=== PATIENT | female | born 1995 | race Caucasian/White ===

== ENCOUNTER 2020-09-22 14:03 | Emergency (ER) | payer OTHER, SELFPAY ==
--- NOTE | 2020-09-22 14:14 | XRR_ITS ---
PROCEDURE INFORMATION: Exam: XR Chest, 1 View Exam date and time: 09/22/2020 2:15 PM Age: 25 years old Clinical indication: Chest pain; Additional info: Pain with breathing TECHNIQUE: Imaging protocol: XR of the chest Views: 1 view. COMPARISON: No relevant prior studies available. FINDINGS: Lungs: The lungs are clear. Pleural space: Unremarkable. No pleural effusion. No pneumothorax. Heart/Mediastinum: Unremarkable. No cardiomegaly. Bones/joints: Unremarkable. XR/XR chest 1V portable [id number] IMPRESSION: Normal study.
[2020-09-22 14:30] VITALS: BP 121/70; PULSE 69; RESP 16; TEMP 36.6; O2SAT 100; BMI 27.8
[2020-09-22 14:34] VITALS: BP 97/64; PULSE 64; RESP 14; O2SAT 97
--- NOTE | 2020-09-22 14:43 | ED_ITS ---
HPI - URI/Sore Throat General: Chief Complaint: General Medical Stated Complaint: SORE THROAT, HURTS TO BREATHE Time Seen by Provider: 09/22/20 14:14 Source: patient Mode of arrival: ambulatory Limitations: no limitations History of Present Illness: HPI Narrative: Pleasant 25-year-old female patient presents to the emergency department with 1 day onset of cough congestion. She reports sore throat, nausea with headache that started past 24 hours. She reports nonproductive cough, cough induces pain in her chest, reports tightness with breathing. No known history of asthma. Has taken [id number]-wxmevks cough medications without improvement. She denies fever chills, denies ill contacts. MD elicited complaint: cough and sore throat Onset (ago): day(s) (1) Consistency: constant and progressively worsening Severity: moderate Description of mucous: other (Nonproductive cough) Able to tolerate fluids by mouth: Yes Exacerbating factors: deep breaths Relieving factors: nothing Associated symptoms: Reports cough, headache(s), nausea, rhinorrhea and sore throat; Deny abdominal pain, chills, chest pain, diarrhea, fever(s), nasal congestion or vomiting Treatments prior to arrival: other (Cough medication) Review of Systems General: Reports: 10 or more systems reviewed and unremarkable except in HPI and below Const: Reports: change in appetite and other (Denies loss of taste or smell); Denies: fever(s), chills, body aches, fatigue, malaise or diaphoresis Eyes: Denies: change in vision, blurry vision or eye redness ENMT: Reports: throat pain and nasal discharge (clear); Denies: hoarseness, oral sores, dental pain, disequilibrium, nasal congestion or post nasal drip Card: Denies: chest pain, palpitations, irregular heart rhythm, lightheadedness, dyspnea on exertion or orthopnea Resp: Reports: non-productive cough and chest congestion; Denies: dyspnea, productive cough or wheezing GI: Reports: nausea; Denies: abdominal pain, vomiting, diarrhea or constipation : Denies: difficulty voiding or dysuria Musc: Denies: neck pain, back pain, joint pain, joint swelling, muscle cramps or muscle weakness Skin/Breast: Denies: rash or pruritus Neuro: Reports: headache(s); Denies: numbness in extremities, difficulty walking, dizziness, vertigo or confusion Psych: Reports: change in appetite; Denies: anxiety, depression or sleeping more Sruya/Lymph: Denies: easy bruising [facility] ED Female Reproductive History: Date of last menstrual period: 08/19/20 Physical Exam Const: COMMON NORMALS: no acute distress, patient oriented x3, healthy renetta earing, alert and well nourished GENERAL APPEARANCE: cooperative, comfortable, well kempt, well developed and well hydrated; not anxious, not combative and not ill appearing NUTRITIONAL APPEARANCE: overweight ORIENTATION/CONSCIOUSNESS: Yes awake, Yes oriented to person, Yes oriented to place and Yes oriented to time; not confused HENMT: COMMON NORMALS: normocephalic, atraumatic, external ears normal, EAC's normal, TM's normal bilaterally, Normal external nose present, moist oral mucous membranes and gingiva normal HEAD & SCALP: normal to inspection, normocephalic and atraumatic FACE & SINUS: normal facial exam, sinuses nontender and face symmetric; no erythema and no edema NOSE: Normal external nose present, Abnormal mucous membranes and turbinates present boggy and Nasal discharge present clear EXTERNAL EAR: Yes external ears normal, Yes mastoids normal and Yes no periauricular adenopathy EXTERNAL AUDITORY CANAL: EAC's normal TYMPANIC MEMBRANE: TM's normal bilaterally MOUTH: Normal oral and palatal mucosa present, lip normal and tongue normal THROAT: posterior oropharynx abnormal cobblestoning and erythema Eye: COMMON NORMALS: Equal, round and reactive pupils present and EOMs intact bilaterally GENERAL EYE: appearance normal, both eyes and all related structures PUPIL: Yes Equal, round and reactive pupils present Neck/C-Spine: COMMON NORMALS: full ROM and no lymphadenopathy GENERAL: Yes normal visual inspection and Yes trachea midline CERVICAL SPINE: Yes cervical ROM normal Lymph: LYMPHATIC: lymphadenopathy (Right subtonsillar with tenderness) Chest: COMMONS NORMALS: normal inspection of the chest Resp: COMMON NORMALS: normal respiratory effort, No retractions, No use of accessory muscles and clear to auscultation bilaterally EFFORT & INSPECTION: Yes able to speak in complete sentences, No respiratory distress and Yes Actively coughing AUSCULTATION: clear to auscultation bilaterally Cardio: COMMON NORMALS: regular rate, regular rhythm, S1 normal heart sound present, S2 normal heart sound present and Peripheral pulses 2+ throughout RATE: regular rate RHYTHM: regular rhythm HEART SOUNDS: S1 normal heart sound present and S2 normal heart sound present PERIPHERAL PULSES: Peripheral pulses 2+ throughout GI: COMMON NORMALS: Normal to inspection, nondistended, normoactive bowel sounds present, Soft to palpation and non-tender INSPECTION: Yes normal to inspection PALPATION: Yes Soft to palpation : COMMON NORMALS: Yes no CVA tenderness BLADDER/KIDNEY EXAM: Yes no CVA tenderness Back/Pelvis: COMMON NORMALS: no CVA tenderness and thoracic and lumbar spine normal to inspection Extremity: COMMON NORMALS: normal to inspection and capillary refill normal Neuro: COMMON NORMALS: patient oriented x3 and no focal motor deficits SENSORIUM/ORIENTATION: Yes alert, Yes oriented to person, Yes oriented to place and Yes oriented to time Psych: COMMON NORMALS: mental status grossly normal, Normal thought process present and cooperative APPEARANCE: Yes well kempt ACTIVITY/MOTOR BEHAVIOR: Yes appropriate eye contact THOUGHT PROCESS: Normal thought process present Skin: COMMON NORMALS: no rashes or lesions noted and turgor normal GENERAL SKIN EXAM: no rashes or lesions noted and turgor normal Course Vital Signs: Vital signs: Vital Signs Temperature 97.8 F 09/22/20 14:30 Pulse Rate 58 L 09/22/20 16:14 Respiratory Rate 18 09/22/20 16:14 Blood Pressure 95/67 09/22/20 16:14 Pulse Oximetry 100 09/22/20 16:14 MDM - URI/Sore Throat Lab Data: Labs: Lab Results 09/22/20 09/22/20 Range/Units 14:45 14:45 Influenza Type A A g Negative (Negative) Influenza Type B A g Negative (Negative) Group A Strep Rapi d Negative (Negative) Discharge Plan Discharge Patient Disposition: Home Clinical Impression: Suspected 2019 novel coronavirus infection Upper respiratory infection Qualifiers: URI type: unspecified viral URI Qualified Code(s): J06.9 - Acute upper respiratory infection, unspecified Condition: Stable Prescriptions: New azithromycin 250 mg tablet See Rx Instructions .ROUTE .COMPLEX Qty: 6 RF: 0 methylprednisolone 4 mg tablets,dose pack See Rx Instructions .ROUTE .COMPLEX Qty: 21 RF: 0 promethazine 25 mg tablet 25 mg PO QID PRN (Reason: nausea/cough) Qty: 10 RF: 0 benzonatate 200 mg capsule 200 mg PO TID PRN (Reason: cough) Qty: 20 RF: 0 Discharge Orders: Discharge ED (Routine); Ordered 09/22/20 Ordered By: Rosy Lomeli Discharge Diet: Advance as tolerated and Clear Liquid Discharge Activity: Limit activity as instructed Patient Instructions: Upper Respiratory Infection (ED) Activity Restrictions/Additional Instructions: Return to the emergency department if you develop difficulty breathing, chest pain or inability to catch your breath Take promethazine as needed for nausea and/or cough, you have also been prescribed benzonatate for cough Push fluids to stay hydrated, may take ibuprofen as needed for pain along with Tylenol as directed on bottle Use albuterol as directed by respiratory therapy with spacer, use 2 puffs every 4 hours as needed for cough/chest tightness. Remain in quarantine until COVID-19 test results are called to you; if positive, [facility] will contact you with further instructions. Stand Alone Forms: Work/School Release Coding Level of Care Code ED Piercer for Jeri Fwd Exam Comprehensive
[2020-09-22] MEDS: promethazine 25 mg Tablet PO (15:16)
[2020-09-22] MEDS: albuterol 8 gm MDI 2 PUFF INHALATION (15:31)
[2020-09-22 15:37] VITALS: PULSE 84; RESP 18; O2SAT 99
[2020-09-22 15:39] VITALS: PULSE 90
[2020-09-22 15:46] LABS: Rapid Strep A Test Negative (Negative)
[2020-09-22 15:55] LABS: Influenza A by IFA Negative (Negative); Influenza B by IFA Negative (Negative)
[2020-09-22 16:14] VITALS: BP 95/67; PULSE 58; RESP 18; O2SAT 100
[2020-09-24 06:10] LABS: Coronavirus Test Green County Not Detected
== END 2020-09-22 16:17 | disposition home or self-care (01) ==
PROVIDERS: Emergency Provider Nurse Practitioner Family
DX: J06.9 Acute upper respiratory infection, unspecified (principal); Z20.828 Contact with and (suspected) exposure to other viral communicable diseases
CPT/HCPCS: 12345; 71045; 87081; 87635; 87804; 87880; 94640; 99281; 99283; J3535; Q0169

== ENCOUNTER → 2020-10-15 08:53 | Outpatient (BNVA) | payer MEDICAID, SELFPAY | PROVIDERS: Visit Provider Nurse Practitioner Women's Health | DX: O20.0 Threatened abortion (principal); O09.899 Supervision of other high risk pregnancies, unspecified trimester; O34.219 Maternal care for unspecified type scar from previous cesarean delivery; O99.331 Smoking (tobacco) complicating pregnancy, first trimester; O20.9 Hemorrhage in early pregnancy, unspecified | CPT/HCPCS: 84315; 84702; 85027; 86850; 86900 ==

== ENCOUNTER → 2020-11-19 08:14 | Outpatient (BNVA) | payer MEDICAID, SELFPAY | PROVIDERS: Visit Provider Obstetrics & Gynecology | DX: O09.899 Supervision of other high risk pregnancies, unspecified trimester (principal); O99.340 Other mental disorders complicating pregnancy, unspecified trimester; O21.9 Vomiting of pregnancy, unspecified; F32.9 Major depressive disorder, single episode, unspecified; O99.210 Obesity complicating pregnancy, unspecified trimester; Z3A.00 Weeks of gestation of pregnancy not specified | CPT/HCPCS: 80307; 84315; 84443; 86592; 86762; 86803; 87086; 87340; 87806 ==

== ENCOUNTER → 2020-12-03 12:07 | Outpatient (BNVA) | payer MEDICAID, SELFPAY | PROVIDERS: Visit Provider Obstetrics & Gynecology | DX: Z12.4 Encounter for screening for malignant neoplasm of cervix (principal); O09.899 Supervision of other high risk pregnancies, unspecified trimester; O09.299 Supervision of pregnancy with other poor reproductive or obstetric history, unspecified trimester; F32.9 Major depressive disorder, single episode, unspecified; Z30.2 Encounter for sterilization; O34.219 Maternal care for unspecified type scar from previous cesarean delivery; O99.331 Smoking (tobacco) complicating pregnancy, first trimester | CPT/HCPCS: 81000; 82950; 87491; 87591; 88175 ==

== ENCOUNTER → 2021-01-15 10:53 | Outpatient (BNVA) | payer MEDICAID, SELFPAY | PROVIDERS: Visit Provider Nurse Practitioner Women's Health | DX: O09.30 Supervision of pregnancy with insufficient antenatal care, unspecified trimester (principal); F33.1 Major depressive disorder, recurrent, moderate; Z30.2 Encounter for sterilization; O09.299 Supervision of pregnancy with other poor reproductive or obstetric history, unspecified trimester; O34.219 Maternal care for unspecified type scar from previous cesarean delivery; O09.899 Supervision of other high risk pregnancies, unspecified trimester; O99.332 Smoking (tobacco) complicating pregnancy, second trimester; Z3A.00 Weeks of gestation of pregnancy not specified | CPT/HCPCS: 80307; 81000 ==

== ENCOUNTER → 2021-01-28 09:19 | Outpatient (BNVA) | payer MEDICAID, SELFPAY | PROVIDERS: Visit Provider Obstetrics & Gynecology | DX: O09.899 Supervision of other high risk pregnancies, unspecified trimester (principal) | CPT/HCPCS: 81000 ==

== ENCOUNTER → 2021-04-02 07:58 | Outpatient (BNVA) | payer MEDICAID, SELFPAY | PROVIDERS: Visit Provider Obstetrics & Gynecology | DX: O09.899 Supervision of other high risk pregnancies, unspecified trimester (principal); Z3A.00 Weeks of gestation of pregnancy not specified | CPT/HCPCS: 80307; 81000; 82950; 85027 ==

== ENCOUNTER 2021-04-18 16:35 | Outpatient (CLI) | payer MEDICAID, SELFPAY ==
[2021-04-18 16:35] VITALS: BMI 31.2
[2021-04-18 16:50] VITALS: BP 101/66; PULSE 79; TEMP 36.6
[2021-04-18 16:58] VITALS: RESP 17
== END 2021-04-18 17:20 | disposition home or self-care (01) ==
LOC: OPOB 16:37 → OBGYN 16:39
PROVIDERS: Visit Provider Obstetrics & Gynecology
DX: O26.899 Other specified pregnancy related conditions, unspecified trimester (principal); Z3A.00 Weeks of gestation of pregnancy not specified; R10.9 Unspecified abdominal pain
CPT/HCPCS: 59025; 81000; 99211

== ENCOUNTER → 2021-05-02 10:11 | Outpatient (BNVA) | payer MEDICAID, SELFPAY | PROVIDERS: Visit Provider Obstetrics & Gynecology | DX: O09.899 Supervision of other high risk pregnancies, unspecified trimester (principal); O99.332 Smoking (tobacco) complicating pregnancy, second trimester; O34.219 Maternal care for unspecified type scar from previous cesarean delivery; O09.299 Supervision of pregnancy with other poor reproductive or obstetric history, unspecified trimester; F33.1 Major depressive disorder, recurrent, moderate; O09.30 Supervision of pregnancy with insufficient antenatal care, unspecified trimester; Z3A.00 Weeks of gestation of pregnancy not specified | CPT/HCPCS: 81000; 85025 ==

== ENCOUNTER → 2021-05-13 08:08 | Outpatient (BNVA) | payer MEDICAID, SELFPAY | PROVIDERS: Visit Provider Obstetrics & Gynecology | DX: O09.899 Supervision of other high risk pregnancies, unspecified trimester (principal); O09.30 Supervision of pregnancy with insufficient antenatal care, unspecified trimester; F33.1 Major depressive disorder, recurrent, moderate; Z30.2 Encounter for sterilization; O34.219 Maternal care for unspecified type scar from previous cesarean delivery; O99.332 Smoking (tobacco) complicating pregnancy, second trimester | CPT/HCPCS: 81000; 87081 ==

== ENCOUNTER → 2021-05-21 09:26 | Outpatient (BNVA) | payer MEDICAID, SELFPAY | PROVIDERS: Visit Provider Nurse Practitioner Women's Health | DX: O09.899 Supervision of other high risk pregnancies, unspecified trimester (principal); O09.30 Supervision of pregnancy with insufficient antenatal care, unspecified trimester; F33.1 Major depressive disorder, recurrent, moderate; Z30.2 Encounter for sterilization; O34.219 Maternal care for unspecified type scar from previous cesarean delivery; O99.332 Smoking (tobacco) complicating pregnancy, second trimester | CPT/HCPCS: 81000 ==

== ENCOUNTER → 2021-05-27 09:13 | Outpatient (BNVA) | payer MEDICAID, SELFPAY | PROVIDERS: Visit Provider Obstetrics & Gynecology | DX: O09.899 Supervision of other high risk pregnancies, unspecified trimester (principal) | CPT/HCPCS: 81000 ==

== ENCOUNTER → 2021-05-30 08:31 | Outpatient (BNVA) | payer MEDICAID, SELFPAY | PROVIDERS: Visit Provider Obstetrics & Gynecology | DX: O34.219 Maternal care for unspecified type scar from previous cesarean delivery (principal); Z30.2 Encounter for sterilization | CPT/HCPCS: 87635 ==

== ENCOUNTER → 2021-06-04 07:45 | Outpatient (BNVA) | payer MEDICAID, SELFPAY | PROVIDERS: Visit Provider Obstetrics & Gynecology | DX: O09.899 Supervision of other high risk pregnancies, unspecified trimester (principal); O99.013 Anemia complicating pregnancy, third trimester; F33.1 Major depressive disorder, recurrent, moderate; Z30.2 Encounter for sterilization; O34.219 Maternal care for unspecified type scar from previous cesarean delivery; O99.332 Smoking (tobacco) complicating pregnancy, second trimester | CPT/HCPCS: 81000 ==

== ENCOUNTER 2021-06-05 05:35 | Inpatient (IN) | payer MEDICAID, SELFPAY ==
--- NOTE | 2021-05-30 10:39 | ANES.PREANE2 ---
Pre-Anesthetic Assessment Pre-Anesthetic Assessment: Height/Weight: Height 1.6 m Preop Diagnosis: Iup Proposed Procedure: Operation Date: 06/05/21 07:00 Proposed Procedures p Section Repeat With Tubal [id number] O34.219 Z30.2(Not Applicable) - Catherine Flores MD Familial anesthetic complications: PONV when her blood pressure drops Was Beta Adrian taken within 24 hours: N/A Social: Social History: No alcohol and No tobacco Exam: Pre-Anes Outpt Exam: alert, oriented x 3, clear to auscultation bilaterally and regular rate & rhythm Airway: Cervical ROM: WNL MP: 3 Dentition: Chipped GI: GI: GERD Anesthetic Plan: ASA status: 2 Anesthesia: Regional (specify below) Risk of > 500 ml blood loss (7ml/kg in children): No PFSH Anesthesia PFSH: Medical History Depression States that she has had depression on and off since she was a teenager. Was on Zoloft and Seroquel prior to the . No pertinent past medical history Denies diabetes, asthma, hypertension, seizures, DVT/PE PMD: none Surgical History Hx of section X 3 2012 2016 2019 Hx of cholecystectomy (~2018) Laparoscopic procedure Family History Mother Breast cancer dx age 40's and received chemoradiation and surgery Thyroid disease Sister Ovarian cancer Diagnosed at the age of 25 and per patient took chemotherapy pills Denies family history of Colon cancer Diabetes Heart disease Hypercholesteremia Hypertension Uterine cancer Stroke Female Reproductive History: Date of last menstrual period: 08/19/20 Data Anesthesia Cardiac Studies: No Data to Display
[2021-06-05] VITALS (27 sets, daily range): BP systolic 82–136; BP diastolic 50–78; PULSE 48–94; RESP 16–18; TEMP 35.8–37; O2SAT 99–100; BMI 32.0
[2021-06-05] MEDS: lactated ringers 1,000 ML 999 ML IV (06:05)
[2021-06-05] MEDS: metoclopramide 5 mg/mL SDV 2 mL 10 MG IVP (06:30)
[2021-06-05] MEDS: citric acid-sodium citrate 30 mL UDC PO (06:30)
[2021-06-05] MEDS: famotidine 20 mg/2 mL INJ IVP (06:30)
[2021-06-05] MEDS: lactated ringers 1,000 ML 125 ML IV (06:33)
--- NOTE | 2021-06-05 06:41 | W.PM.OPSUD ---
Surgery/Procedure H&P Update DATE OF PROCEDURE: June 05, 2021 DATE H&P PERFORMED: 06/04/21 H&P UPDATE INFORMATION: I have reviewed H&P completed within last 30 days, I have examined patient prior to procedure, No changes to prior documentation and H&P is in [facility] on date indicated PREOP DIAGNOSIS: Iup PRIMARY INDICATION FOR PROCEDURE: Previous delivery-desires sterilization PLANNED PROCEDURE: Operation Date: 06/05/21 07:00 Proposed Procedures p Section Repeat With Tubal [id number] O34.219 Z30.2(Not Applicable) - Catherine Flores MD
[2021-06-05 06:51] LABS: Basophils % 0.4 %; Eosinophils # 0.2 10^3/uL (0.0-0.8); Eosinophils % 1.7 %; Hematocrit 30.7 % (37.0-47.0); Hemoglobin 9.5 g/dL (11.5-15.3); Lymphocytes # 2.7 10^3/uL (0.8-4.8); Lymphocytes % 24.2 %; Mean Corpuscular HGB Conc 30.9 g/dL (30.0-36.0); Mean Corpuscular Hemoglobin 25.3 pg (28.0-34.0); Mean Corpuscular Volume 81.9 fl (81-99); Mean Platelet Volume 9.8 fL (7.4-10.4); Monocytes # 0.8 10^3/uL (0.2-0.9); Monocytes % 6.9 %; Neutrophils # 7.23 10^3/uL (1.8-7.7); Neutrophils % 66.1 %; Nucleated Red Blood Cells % 0 %; Platelet Count 285 10^3/cmm (130-400); Red Blood Count 3.75 10^6/uL (4.1-5.3); Red Cell Distribution Width 14.4 % (12.1-15.1)
--- NOTE | 2021-06-05 06:56 | ANES.PAUD2 ---
Pre-Anesthetic Update Pre-Anesthetic Assessment: Date of Surgery/Procedure: 06/05/21 Preop Diagnosis: Iup Proposed Procedure: Operation Date: 06/05/21 07:00 Proposed Procedures p Section Repeat With Tubal [id number] O34.219 Z30.2(Not Applicable) - Catherine Flores MD Any changes to Pre-Anesthetic Assessment?: No Last Intake: Intake Last Liquid Date 06/04/21 Last Liquid Time 23:00 Last Solid Date 06/04/21 Last Solid Time 20:00 Labs Last 48hrs: Laboratory Results - last 48 hr 06/05/21 05:50 WBC 11.0 H RBC 3.75 L Hgb 9.5 L Hct 30.7 L MCV 81.9 MCH 25.3 L MCHC 30.9 RDW 14.4 Plt Count 285 MPV 9.8 Neut % (Auto) 66.1 Lymph % (Auto) 24.2 Mckenzie % (Auto) 6.9 Eos % (Auto) 1.7 Baso % (Auto) 0.4 Neut # (Auto) 7.23 Lymph # (Auto) 2.7 Mckenzie # (Auto) 0.8 Eos # (Auto) 0.2 Baso # (Auto) 0.0 Nucleated RBC % (a uto) 0 Nucleated RBCs # 0.0 Vitals: Temperature 96.4 F L 06/05/21 05:54 Pulse Rate 79 06/05/21 06:26 Pulse Rhythm 06/05/21 05:58 Pulse Strength 3+ Normal 06/05/21 05:58 Respiratory Rate 16 06/05/21 05:43 Respiratory Effort Non-Labored 06/05/21 05:58 Respiratory Depth Normal 06/05/21 05:58 Respiratory Patter n 06/05/21 05:58 Blood Pressure 104/63 06/05/21 06:26 Oxygen Delivery Me thod 06/05/21 05:58 Exam: Pre-Anes Outpt Exam: alert, oriented x 3, clear to auscultation bilaterally and regular rate & rhythm Cardiac Studies: No Data to Display
--- NOTE | 2021-06-05 07:05 | PC.NURSE ---
in dictation area, updated that Dr. Stewart stated that she is not going to come to unit for delivery, only if there is an emergency.
--- NOTE | 2021-06-05 08:54 | P.PCN_ITS ---
PACU note PACU note: VSS, Good respiratory effort, report to [place] OPERATOR Post-Anesthesia Exam: awake
--- NOTE | 2021-06-05 08:54 | PM.PACU ---
PACU note PACU note: VSS, Good respiratory effort, report to DEL[employer] Post-Anesthesia Exam: awake
--- NOTE | 2021-06-05 09:01 | P.OP_ITS ---
Operative Report Date of procedure: June 05, 2021 OPERATIVE REPORT Date of surgery: 06/05/2021 Date of dictation: 06/05/2021 Preoperative diagnosis: Previous delivery x3 for repeat , multiparity desiring permanent sterilization, anemia on iron Postoperative diagnosis/findings: Same, normal tubes and ovaries bilaterally, dense bladder adhesions onto the uterus and filmy omental adhesions onto the anterior abdominal wall on the left side. Baby henrry Craven weighing 7 pounds 5 ounces, 3315 g with Apgars 9/9, length 19 inches, clear fluid Procedure done: Repeat low transverse delivery via Pfannenstiel incision and bilateral total salpingectomy for sterilization. Specimens removed/disposition of specimens: Placenta and cord which were discarded, right and left fallopian tubes which were sent to pathology Surgeon: Dr. Catherine Parker clinical laboratory assistant: Mercy Galvan Anesthesia: Spinal anesthesia Estimated blood loss: 700 ml Intravenous fluids: 1300 mL of LR Urine output: 150 mL of clear urine at the end of procedure-concentrated Medications: As per anesthesia records Complications: None, patient and baby were left to recover in a stable condition PROCEDURE: After consent was obtained, patient was taken to the operating room where spinal anesthesia was placed without difficulty. She was placed supine on the table with a left lateral wedge. Mackay catheter and SCDs were placed. The abdomen was shaved and then prepped with duo prep. She was draped in a sterile fashion. After checking adequacy of anesthesia, a Pfannenstiel incision was made 2-3 cm above the pubic symphysis using her old scar. The incision was carried down to the fascia using the Bovie. The fascia was nicked in the midline and the fascial incision was extended laterally using curved Mayos. The inferior aspect of the fascia was grasped with oz clamps and dissected off from the underlying rectus muscle. This was repeated again superiorly without any difficulty. The rectus muscle was sharply and peritoneum was identified. A rhea was made in the peritoneum and the peritoneal incision was carried inferiorly taking care to proceed in layers so as to avoid the bladder. The peritoneal incision was extended superiorly as well. No adhesions were noted from the uterus to the anterior abdominal wall. Filmy omental adhesions were noted on the left side to the anterior abdominal wall and this was taken down without any difficulty. The uterus was noted to be rotated to the left. The bladder was noted to be densely adherent to the uterus and using sharp dissection the bladder was taken down. The bladder peritoneum was grasped with smooth forceps a bladder flap was created. the bladder blade was replaced thus protecting the bladder. A LOW TRANSVERSE UTERINE INCISION was made with a scalpel till the amniotic membrane was reached. The uterine incision was then extended laterally using bandage scissors. Amniotomy was done with Allis clamps and clear amniotic fluid was drained. The head of the baby was brought up to the level of the incision and delivered with fundal pressure. The remainder of body followed without any difficulty. The nose and mouth were suctioned, the umbilical cord was clamped and cut and the baby was handed off to the waiting nurse Jeane.. The placenta was delivered spontaneously with fundal massage. It was noted to be intact and was discarded. The interior of the uterus was cleaned of all clot and debris and was noted to be buddy well. The uterus was exteriorized. The uterine incision was closed with 0 Vicryl in a running interlocking manner. Good hemostasis and reapproximation was obtained. [id number] sutures were p laced over areas for imbrication and hemostasis. The abdomen was irrigated and the gutters were cleaned of clot and debris. Normal tubes and ovaries were noted bilaterally. Tubal ligation was performed at this time. The fallopian tube on the right side and in the left side were first identified grasped with Félix clamps. Using the Voyant device the mesosalpinx under the fallopian tube was identified clamped cauterized and then cut in a sequential fashion until the entire fallopian tube was removed. This was done first on the right side and then the left side without any difficulty. Areas of vasculature were doubly cauterized. The cornual end was cauterized as well. Good hemostasis and reapproximation of tissue was noted. Bilateral fallopian tubes were sent to pathology in total. The uterus was placed back into the abdomen and uterine incision was noted to be hemostatic. The peritoneum was closed with a 2-0 plain in a continuous stitch. The rectus muscle was reapproximated with 2-0 plain suture in a mattress stitch. Good hemostasis was noted in the rectus muscle layer. The fascia was inspected for any defects and none were found and the fascia was closed with 0- loop PDS in continuous stitch. The subcutaneous plane was then irrigated and hemostasis was obtained using the Bovie. The subcutaneous plane was then reapproximated using 2-0 plain suture in a continuous manner. The skin was then closed with 4-0 Monocryl in a subcuticular fashion. Good reapproximation and hemostasis was noted. Steri-Strips were applied. The incision was dressed with Telfa ,ABD and paper tape. The fundus was noted to be firm at the end of the procedure and excess blood was expressed from the vagina. The patient was left to recover in a stable condition. Lap instrument and needle counts were correct x3. This documentation was created by [employer] blasting entry specialist software (known for inherent blasting entry specialist error). Every effort was made to assure accuracy of blasting entry specialist. Any obvious errors or omissions should be clarified with the author of the document. Pre-op Diagnosis: Iup History History History 8 Term 4 Miscarriages/Ectopic 4 0 Living Children 4 Other History: CDX 4 SABX 4 1--> miscarriage at 6-8 weeks 2--> 03/31/13- girl (Jaylin), FT, section due to breech presentation, 10#7oz, [place] 3--> miscarriage at unknown gestation 4--> miscarriage at 4-5 weeks 5--> 06/28/2017- girl(Diana), FT, repeat section, 8# 6oz, [place] 6--> 08/10/2019, boy (Johnny), FT, repeat section, 6lbs 12oz, [place] 7--> 03/2020 SAB at early gestation 8----> 06/05/2021, boy(Herber) weighing 7 pounds 5 ounces, 3315 g scheduled repeat low transverse delivery with total salpingectomy for sterilization at 39 [address] [place] [facility] Dense bladder adhesions noted at time of surgery. [facility] [employer] REPA[employer]ER Medical History Depression States that she has had depression on and off since she was a teenager. Was on Zoloft and Seroquel prior to the . No pertinent past medical history Denies diabetes, asthma, hypertension, seizures, DVT/PE PMD: none Surgical History (Updated 06/05/21 @ 09:13 by Catherine Flores MD) Hx of section X 4 2012 2017 2019 06/05/2021---repeat low transverse delivery and tubal ligation performed by Dr. Parker [place] [facility]. Dense bladder adhesions of the uterus otherwise no significant additions. Hx of cholecystectomy (~2018) Laparoscopic procedure Status post tubal ligation 06/05/2021---total bilateral salpingectomy for sterilization done at time of fourth by Dr. Parker [place] [facility] Pathology------- Family History Mother Breast cancer dx age 40's and received chemoradiation and surgery Thyroid disease Sister Ovarian cancer Diagnosed at the age of 25 and per patient took chemotherapy pills Denies family history of Colon cancer Diabetes Heart disease Hypercholesteremia Hypertension Uterine cancer Stroke Supplemental [facility] Information - Tobacco use: Started smoking at age 8 and and smoked up to 1 pack per day until she found out she was . Quit smoking 10/28/2020 and denies tobacoo use since then. Started smoking again early December using 1 -1 ppd. Has been trying to cut back and stopped smoking in March 2021. Denies tobacco use since then. Alcohol use: denies Drug use: denies Work: Was working at [employer] in [place] making [employer] [place] until March 2021. Currently staying at home with her children. Other Female Reproductive History Menstrual History Comment: Menarche at age 12 with a cycle length of 28-30 days and a bleeding duration of 3-7 days. Sexual History Sexual History Comment: Coitarche at age 14, more than 5 lifetime partners, has been with current partner since 2019. His name is Richard Desir and he works at [employer]. STD History Comment: Denies sexually transmitted diseases in the past. Denies herpes in her or her partner Contraception Contraception History Comment: Is use control pills and the Nexplanon in the past for contraception. She was not a very good pill taker and felt that the Nexplanon made her depression very bad and made her feel suicidal. --Total salpingectomy done for sterilization on 06/05/2021 at time of her fourth .
--- NOTE | 2021-06-05 10:42 | PC.NURSE ---
note Assisted pt in OR with position and latch. Mom did not have enough milk with prior baby. Encouraged frequent feedings. This baby nursing very well. Provided Understanding book and contact information.
[2021-06-05] MEDS: HYDROcodone-acetaminophen 5-325 mg Tablet PO ×3 (10:58→22:27)
[2021-06-05] MEDS: ondansetron 2 mg/ML SDV 2 mL 4 MG IVP (11:41)
[2021-06-05] MEDS: diphenhydrAMINE 50 mg/mL SDV 1mL 25 MG IVP ×2 (15:08→20:11)
[2021-06-05] MEDS: dextrose 5%-lactated ringers 1,000 ML 125 ML IV (15:08)
[2021-06-05] MEDS: ferrous sulfate EC 325 mg Tablet PO (18:38)
[2021-06-05] MEDS: docusate sodium 100 mg Capsule PO (18:38)
[2021-06-05] MEDS: hydrocortisone 2.5% cream 28 gm 1 APPLIC TOPICAL (19:51)
[2021-06-05 20:51] LABS: Hematocrit 30.9 % (37.0-47.0); Hemoglobin 9.6 g/dL (11.5-15.3); Mean Corpuscular HGB Conc 31.1 g/dL (30.0-36.0); Mean Corpuscular Hemoglobin 25.6 pg (28.0-34.0); Mean Corpuscular Volume 82.4 fl (81-99); Mean Platelet Volume 9.8 fL (7.4-10.4); Platelet Count 239 10^3/cmm (130-400); Red Blood Count 3.75 10^6/uL (4.1-5.3); Red Cell Distribution Width 14.5 % (12.1-15.1); White Blood Count 12.5 10^3/uL (4.0-10.0)
[2021-06-05] MEDS: ibuprofen 800 mg tablet PO (21:10)
[2021-06-06] MEDS: HYDROcodone-acetaminophen 5-325 mg Tablet PO ×4 (02:31→18:34)
[2021-06-06 04:00] VITALS: BP 100/63; PULSE 63; RESP 18; TEMP 36.4; O2SAT 100
[2021-06-06] MEDS: prenatal vitamin Capsule 1 CAP PO (08:40)
[2021-06-06] MEDS: ibuprofen 800 mg tablet PO ×2 (08:40→22:26)
[2021-06-06] MEDS: docusate sodium 100 mg Capsule PO ×2 (08:40→18:34)
[2021-06-06] MEDS: ferrous sulfate EC 325 mg Tablet PO ×2 (08:40→18:34)
--- NOTE | 2021-06-06 10:34 | PM.PN ---
Subjective Subjective: Interval history: SUBJECTIVE: Lulu is doing well today. She has passed flatus and has tolerated a regular diet. She denies any nausea vomiting fever chills shortness of breath or chest pain. She is up and ambulating well. She does report having pain however pain medication helps. She continues to desire her son to have a circumcision. She would like to stay until tomorrow. Catheter was removed this morning and she is voided without any difficulty. She denies any dizziness on ambulation. OBJECTIVE/PHYSICAL EXAM: Gen.: No acute distress Heart: S1-S2 heard, regular rate and rhythm Lungs: Clear to auscultation bilaterally Abdomen: Soft, fundus firm below umbilicus, tenderness around incision. Incision: Clean dry and intact with Steri-Strips. Legs: No calf tenderness, trace bilateral pitting pedal edema. ASSESSMENT AND PLAN: 26-year-old 8 para 4-0-4-4 status post repeat delivery and total salpingectomy for sterilization, postoperative day #1 -Doing well-continue routine postoperative care -P.o. medication as needed for pain. -Anemia-hemoglobin stable and vital signs stable.-Continue current care -SCDs while in bed and encourage ambulation for DVT prophylaxis -Anticipate discharge home tomorrow or the day after depending on how she recovers from her . -Discontinue IV Vitals/I&O/Wt Last Vital Signs Temp 97.5 F L 06/06/21 04:00 Pulse 63 06/06/21 04:00 Resp 18 06/06/21 04:00 BP 100/63 06/06/21 04:00 Pulse Ox 100 06/06/21 04:00 06/05/21 06/06/21 06/06/21 22:59 06:59 14:59 Intake Total 600 / 1900 2250 / 4150 Output Total 2800 / 3650 2600 / 6250 Balance -2200 / -1750 -350 / -2100 Weight last 48 hrs Weight 175 lb Physical Exam Urinary Catheter Management^: Mackay: Cath Placed During This Visit: yes, but has since been removed by the nurse Reason for Continuing Indwelling Catheter: Decision to DC Catheter Urinary Catheter Date of Insertion: 06/05/21 Urinary Catheter Time of Insertion: 07:15 Date Urinary Catheter Removed: 06/06/21 Time Urinary Catheter Discontinued: 06:35 Data : 06/05/21 20:10 Attestations Medical Necessity Statement*: Patient will need to stay for a couple more midnights to recover from surgery Coding Level of Care Code Acute Impregnation Operator for Jeri Tejeda
[2021-06-06] MEDS: lanolin oint 7 gm 1 APPLIC TOPICAL (13:04)
[2021-06-06 13:55] VITALS: BP 103/65; PULSE 65; RESP 17; TEMP 36.4; O2SAT 100
[2021-06-06 23:00] VITALS: BP 110/72; PULSE 80; RESP 18; TEMP 36.4
[2021-06-07 02:15] VITALS: BP 93/60; PULSE 64; RESP 16; TEMP 36.9; O2SAT 99
[2021-06-07 05:16] VITALS: BP 94/59; PULSE 68; RESP 16; TEMP 36.8; O2SAT 99
[2021-06-07] MEDS: HYDROcodone-acetaminophen 5-325 mg Tablet PO (05:17)
--- NOTE | 2021-06-07 06:32 | P.DS_ITS ---
Discharge Providers Date of Admission: 06/05/21 05:35 Date of Discharge: June 07, 2021 Attending Provider at Admission: Catherine Flores MD Attending Provider at Discharge: Catherine Flores MD Diagnoses at Discharge Discharge Diagnosis (1) Postoperative state: Status: Acute Reason for Visit Reason for Visit: repeat c section with tubal Hospital Course Hospital Course the patient was admitted for repeat with tubal. She did well postoperatively and was ready for discharge on day #2 Physical Exam Narrative: EXAM NARRATIVE: The patient is doing well this morning. She has no concerns. Her pain is well tolerated. Minimal lochia. Tolerating a regular diet and ambulating without difficulty Const: COMMON NORMALS: no acute distress, average body habitus, patient oriented x3, no limitations, healthy appearing, alert and well nourished GENERAL APPEARANCE: cooperative, comfortable, well kempt and well developed ORIENTATION/CONSCIOUSNESS: Yes awake, Yes oriented to person, Yes oriented to place and Yes oriented to time Resp: COMMON NORMALS: normal respiratory effort EFFORT & INSPECTION: Yes able to speak in complete sentences GI: COMMON NORMALS: Soft to palpation and non-tender PALPATION: Yes Soft to palpation Extremity: COMMON NORMALS: no clubbing, cyanosis or edema and no calf tender ness Neuro: COMMON NORMALS: patient oriented x3 SENSORIUM/ORIENTATION: Yes alert, Yes oriented to person, Yes oriented to place and Yes oriented to time Psych: APPEARANCE: Yes well kempt Urinary Catheter Management^: Mackay: Cath Placed During This Visit: yes, but has since been removed by the nurse Reason for Continuing Indwelling Catheter: Decision to DC Catheter Urinary Catheter Date of Insertion: 06/05/21 Urinary Catheter Time of Insertion: 07:15 Date Urinary Catheter Removed: 06/06/21 Time Urinary Catheter Discontinued: 06:35 Discharge Data Data Completed and Pending: Pending at discharge Category Date Time Status Pathology: Surgic al [PTH] Routine Pth 06/05/21 10:01 Received Vitals: Last Vital Signs Temp 98.3 F 06/07/21 05:16 Pulse 68 06/07/21 05:16 Resp 16 06/07/21 05:16 BP 94/59 06/07/21 05:16 Pulse Ox 99 06/07/21 05:16 Discharge Plan Discharge Patient Disposition: Home Condition: Stable Prescriptions: New hydrocodone-acetaminophen 5-325 mg Tablet 1 tab PO Q4H PRN (Reason: Moderate To Severe Pain) Qty: 30 RF: 0 Continued Flintstones Multivitamin Tablet,Chewable 1 tab PO DAILY RF: 0 ferrous sulfate [FeroSul] 325 mg (65 mg iron) tablet 325 mg PO BID RF: 0 Discharge Orders: Discharge Order (Routine); Ordered 06/07/21 Ordered By: Nina Spencer Patient Instructions: Opioid Safety Discharge Attestations Time Spent in Discharge Care*: less than 30 min Quality Metrics Clinical Quality Measures During this hospital stay, did patient experience: None Coding Level of Care Code Acute Chg FW DC note Diagnoses Postoperative state Z98.890
[2021-06-07] MEDS: docusate sodium 100 mg Capsule PO (08:39)
[2021-06-07] MEDS: prenatal vitamin Capsule 1 CAP PO (08:39)
[2021-06-07] MEDS: ferrous sulfate EC 325 mg Tablet PO (08:39)
[2021-06-07] MEDS: ibuprofen 800 mg tablet PO (08:39)
[2021-06-07 11:02] VITALS: BP 101/65; PULSE 55; RESP 16; TEMP 36.6; O2SAT 100
== END 2021-06-07 11:21 | disposition home or self-care (01) | DRG 785 ==
PROVIDERS: Admitting Provider Obstetrics & Gynecology; Visit Provider Obstetrics & Gynecology
PROC: 10D00Z1 Extraction of Products of Conception, Low, Open Approach (ICD-10-PCS; CPT 59514; principal; 2021-06-05 07:00)
DX: O34.211 Maternal care for low transverse scar from previous cesarean delivery (principal); O99.02 Anemia complicating childbirth; D64.9 Anemia, unspecified; K66.0 Peritoneal adhesions (postprocedural) (postinfection); Z3A.39 39 weeks gestation of pregnancy; Z37.0 Single live birth; Z30.2 Encounter for sterilization; Z90.49 Acquired absence of other specified parts of digestive tract; Z80.3 Family history of malignant neoplasm of breast
CPT/HCPCS: 36415; 58611; 59409; 85025; 85027; 86900; 88302; 96374; 96375; 98960; J0690; J1200; J2274; J2370; J2405; J2765; J3490

== ENCOUNTER 2022-12-02 00:28 | Emergency (ER) | payer MEDICAID, SELFPAY ==
[2022-12-02 00:37] VITALS: BP 103/68; PULSE 60; RESP 15; TEMP 36.8; O2SAT 99
[2022-12-02 00:46] VITALS: O2SAT 99
--- NOTE | 2022-12-02 00:53 | W.ED.COVID ---
HPI - COVID General: Chief Complaint: COVID symptoms Stated Complaint: needs covid test, exposure Time Seen by Provider: 12/02/22 00:33 Triage information: Has fever, cough or shortness of breath. Exposure to COVID + person last 14 days History of Present Illness: 27-year-old female comes in today for complaints of body aches, cough, chills. Patient reports symptoms started on Wednesday. Patient reports that 2 of her coworkers at the [employer] office she works were tested positive for COVID. Patient appears nontoxic. Patient takes medication routinely for atopic dermatitis. Patient reports no other medical issues. COVID 19 common symptoms: positive chills and body aches; negative dyspnea, throat pain, nausea, vomiting or diarrhea COVID 19 other sytmptoms: negative chest pain COVID Results: SARS-CoV-2 Antigen (Rapid) negative (Negative) 12/02/22 00:43 SARS-CoV-2 RNA (RT-PCR) Not detected (NOT DETECTED) 05/30/21 08:31 Nasal/Oral Coronavirus 2019 PCR Not detected 09/22/20 16:10 Review of Systems General: Reports: 10 or more systems reviewed and unremarkable except in HPI and below Const: Reports: chills and body aches Eyes: Denies: change in vision ENMT: Denies: throat pain Card: Denies: chest pain Resp: Denies: dyspnea GI: Denies: nausea, vomiting or diarrhea Musc: Denies: neck pain Skin/Breast: Denies: rash PFSH ED PFSH: Medical History (Updated 12/02/22 @ 01:12 by NESS Matute) Depression States that she has had depression on and off since she was a teenager. Was on Zoloft and Seroquel prior to the . No pertinent past medical history Denies diabetes, asthma, hypertension, seizures, DVT/PE PMD: none Surgical History (Updated 07/15/21 @ 19:17 by Catherine Flores MD) Hx of section X 4 201206/05/2021---repeat low transverse delivery [place] [facility] [place] Dense bladder adhesions of the uterus otherwise no significant additions. Hx of cholecystectomy (~2018) Laparoscopic procedure Status post tubal ligation 06/05/2021---total bilateral salpingectomy for sterilization done at time of fourth [place] Dr[place] [facility] [place] Pathology------- benign bilateral fallopian tubes without malignancy Family History Mother Breast cancer dx age 40's and received chemoradiation and surgery Thyroid disease Sister Ovarian cancer Diagnosed at the age of 25 and per patient took chemotherapy pills Denies family history of Colon cancer Diabetes Heart disease Hypercholesteremia Hypertension Uterine cancer Stroke Physical Exam Const: COMMON NORMALS: alert HENMT: COMMON NORMALS: normocephalic, Normal external nose present and Normal nasal mucous membranes and turbinates present HEAD & SCALP: normocephalic NOSE: Normal external nose present and Normal nasal mucous membranes and turbinates present MOUTH: Normal oral and palatal mucosa present THROAT: posterior oropharynx normal Neck/C-Spine: COMMON NORMALS: full ROM Resp: COMMON NORMALS: normal respiratory effort and clear to auscultation bilaterally AUSCULTATION: clear to auscultation bilaterally Cardio: COMMON NORMALS: regular rate and regular rhythm RATE: regular rate RHYTHM: regular rhythm GI: COMMON NORMALS: non-tender Extremity: COMMON NORMALS: normal to inspection Neuro: SENSORIUM/ORIENTATION: Yes alert Skin: COMMON NORMALS: turgor normal GENERAL SKIN EXAM: turgor normal Course Vital Signs: Vital signs: Vital Signs Temperature 98.2 F 12/02/22 00:37 Pulse Rate 60 12/02/22 00:37 Respiratory Rate 15 12/02/22 00:37 Blood Pressure 103/68 12/02/22 00:37 Pulse Oximetry 99 12/02/22 00:46 Oxygen Delivery Mt thod 12/02/22 00:46 MDM - COVID Medical Decision Making Patient comes in today for concerns of cough, body aches, chills since Wednesday. Patient has had positive exposure to COVID-19. On exam posterior pharynx has some mild PND. Respirations are even lungs are clear to auscultation. Abdomen soft and nontender. Vital signs are normal. Differential diagnosis includes but not limited to viral syndrome, COVID-19, influenza. COVID-19 test was negative. Encourage plenty of fluids. Recommend supportive care for viral infection. Patient reported understanding and agreed to plan. Lab Data Laboratory Results SARS-CoV-2 Ag (Rapid) negative (Negative) 12/02/22 00:43 SARS-CoV-2 Antigen (Rapid) negative (Negative) 12/02/22 00:43 SARS-CoV-2 RNA (RT-PCR) Not detected (NOT DETECTED) 05/30/21 08:31 Nasal/Oral Coronavirus 2019 PCR Not detected 09/22/20 16:10 Discharge Plan Discharge Patient Disposition: Home Clinical Impression: Viral infection Condition: Stable Prescriptions: No Action Flintstones Multivitamin Tablet,Chewable 1 tab PO DAILY Discharge Orders: Discharge ED (Routine); Ordered 12/02/22 Ordered By: Richard Howard Discharge Diet: Usual diet Discharge Activity: Increase activity as tolerated Patient Instructions: Viral Syndrome (ED) Activity Restrictions/Additional Instructions: Use acetaminophen and ibuprofen for pain and discomfort. Drink plenty of water and fluids. Follow-up with primary care as needed. Return to ED for worsening symptoms or new concerns such as chest pain, increased difficulty breathing, or inability to hold fluids down. Coding Level of Care Code ED Filing Writer for Jeri Tejeda
[2022-12-02 01:07] LABS: SARS Covid-2 Antigen negative (Negative)
--- NOTE | 2022-12-08 13:41 | DCPLANNER ---
Addendum entered by Mckayla Chamorro 12/08/22 13:42: Patient was called due to no primary care physician - phone disconnected Original Note: 12.06.22 - patient was called due to no primary care physician - phone disconnected
== END 2022-12-02 01:19 | disposition home or self-care (01) ==
PROVIDERS: Emergency Provider Nurse Practitioner Family
DX: B34.9 Viral infection, unspecified (principal); Z20.822 Contact with and (suspected) exposure to COVID-19
CPT/HCPCS: 87426; 99283

== ENCOUNTER 2023-05-30 19:11 | Emergency (ER) | payer MEDICAID, SELFPAY ==
[2023-05-30 19:14] VITALS: BP 117/67; PULSE 56; RESP 17; TEMP 36.6; O2SAT 100; BMI 27.2
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
[2023-05-30 20:23] LABS: HCG Qualitative Urine. Negative (Negative); Urine Appearance Hazy (CLEAR); Urine Color Yellow (Yellow)
[2023-05-30 20:24] LABS: Add Urine Microscopic? YES; Bilirubin Urine Neg (Negative); Blood Urine 2+ (Negative); Glucose Urine UA Norm (Normal); Ketones Urine Negative (Negative); Leukocyte Esterase Urine Negative (Negative); Nitrate Urine Negative (Negative); Protein Urine Neg (Negative); Urobilinogen Urine Neg (Negative); pH Urine 7 (5-7)
[2023-05-30 20:30] LABS: Add Urine Culture? No; Amorphous Sediment Urine 3+ /hpf; RBC Urine 0-4 /hpf (0-2); Squamous Epithelial Cell Urine 0-4 /hpf (0-5); WBC Urine RARE /hpf (0-5)
[2023-05-30 20:42] VITALS: PULSE 61; RESP 16; O2SAT 99
[2023-06-01 13:19] LABS: Chlamydia Trachomatis RNA TMA NOT DETECTED (NOT DETECTED); Neisseria Gonorrhoeae RNA, TMA NOT DETECTED (NOT DETECTED)
== END 2023-05-30 20:43 | disposition home or self-care (01) ==
PROVIDERS: Emergency Provider Family Medicine
DX: N76.0 Acute vaginitis (principal)
CPT/HCPCS: 81001; 81025; 87210; 87491; 87591; 99283

== ENCOUNTER 2023-06-14 14:14 | Emergency (ER) | payer MEDICAID, SELFPAY ==
--- NOTE | 2023-06-14 14:15 | XRR_ITS ---
PROCEDURE INFORMATION: Exam: XR Chest Exam date and time: 06/14/2023 2:22 PM Age: 28 years old Clinical indication: Cough.No history of trauma or recent surgery is provided. TECHNIQUE: Imaging protocol: Radiologic exam of the chest. 1image(s) are provided. Views: 1 view. COMPARISON: CR XR chest 1V portable [id number] 09/22/2020 2:49 PM FINDINGS: Lungs: No lobar consolidation is appreciated. Pleural spaces: No pneumothorax or significant pleural effusion is appreciated. Heart/Mediastinum: The cardiomediastinal silhouette is within normal. No cardiac decompensation is appreciated. Diaphragm: The hemidiaphragms are symmetric. Bones/joints: Osseous alignment is maintained.No interval displaced fracture or dislocation is appreciated. There is some borderline distance of the acromioclavicular junctions. Soft tissues: No radiopaque foreign body or subcutaneous emphysema is appreciated. Intraperitoneal space: Right upper quadrant surgical clips are appreciated. Other findings: No other significant interval changes are appreciated. XR/XR chest 1V portable [id number] IMPRESSION: No lobar consolidation is appreciated.No interval acute cardiopulmonary changes are appreciated.
[2023-06-14 14:28] VITALS: BP 117/82; PULSE 79; RESP 17; TEMP 36.6; O2SAT 99; BMI 27.4
--- NOTE | 2023-06-14 14:53 | W.ED.COVID ---
HPI - COVID General: Chief Complaint: COVID symptoms Stated Complaint: covid symptoms Time Seen by Provider: 06/14/23 14:50 Source: patient Mode of arrival: ambulatory Limitations: no limitations History of Present Illness: 28-year-old female states she has been exposed to COVID at work and over the last 2 to 3 days she has had cough congestion low-grade fevers and body aches and believes she likely has COVID. She is in no distress here pulse ox is normal she had no vomiting no diarrhea. She denies any worsening improving factors COVID 19 common symptoms: positive fever(s), chills, non-productive cough and body aches; negative dyspnea, headache(s), throat pain, nausea, vomiting or diarrhea COVID 19 other sytmptoms: negative chest pain COVID Results: SARS-CoV-2 Antigen (Rapid) negative (Negative) 12/02/22 00:43 SARS-CoV-2 RNA (RT-PCR) Not detected (NOT DETECTED) 05/30/21 08:31 Nasal/Oral Coronavirus 2019 PCR Not detected 09/22/20 16:10 Review of Systems Const: Reports: fever(s), chills and body aches; Denies: change in appetite Eyes: Denies: eye discomfort ENMT: Denies: throat pain or dental pain Card: Denies: chest pain Resp: Reports: non-productive cough; Denies: dyspnea GI: Denies: abdominal pain, nausea, vomiting or diarrhea : Denies: dysuria Musc: Denies: neck pain or back pain Skin/Breast: Denies: rash Neuro: Denies: headache(s) PFSH ED PFSH: Medical History Depression States that she has had depression on and off since she was a teenager. Was on Zoloft and Seroquel prior to the . No pertinent past medical history Denies diabetes, asthma, hypertension, seizures, DVT/PE PMD: none Surgical History Hx of section X 4 201206/05/2021---repeat low transverse delivery and tubal ligation performed by Dr. Parker at [facility] [place]. Dense bladder adhesions of the uterus otherwise no significant additions. Hx of cholecystectomy (~2018) Laparoscopic procedure Status post tubal ligation 06/05/2021---total bilateral salpingectomy for sterilization done at time of fourth by Dr. Parker at [facility] [place]. Pathology------- benign bilateral fallopian tubes without malignancy Family History Mother Breast cancer dx age 40's and received chemoradiation and surgery Thyroid disease Sister Ovarian cancer Diagnosed at the age of 25 and per patient took chemotherapy pills Denies family history of Colon cancer Diabetes Heart disease Hypercholesteremia Hypertension Uterine cancer Stroke Physical Exam Const: COMMON NORMALS: no acute distress, patient oriented x3 and healthy appearing HENMT: COMMON NORMALS: normocephalic and atraumatic HEAD & SCALP: normocephalic and atraumatic Eye: COMMON NORMALS: conjunctivae normal CONJUNCTIVA: Yes conjunctivae normal Neck/C-Spine: COMMON NORMALS: full ROM and supple Chest: COMMONS NORMALS: normal inspection of the chest Resp: COMMON NORMALS: normal respiratory effort, No retractions, No use of accessory muscles and clear to auscultation bilaterally AUSCULTATION: clear to auscultation bilaterally Cardio: COMMON NORMALS: regular rate, regular rhythm and No murmurs present (Cardio) RATE: regular rate RHYTHM: regular rhythm Extremity: COMMON NORMALS: normal to inspection and full ROM Neuro: COMMON NORMALS: patient oriented x3, moves all extremities and no focal motor deficits Psych: COMMON NORMALS: mental status grossly normal, Normal thought process present and cooperative THOUGHT PROCESS: Normal thought process present Skin: COMMON NORMALS: no rashes or lesions noted and no wounds GENERAL SKIN EXAM: no rashes or lesions noted Course Vital Signs: Vital signs: Vital Signs Temperature 98 F 06/14/23 14:28 Pulse Rate 79 06/14/23 14:28 Respiratory Rate 17 06/14/23 14:28 Blood Pressure 117/82 06/14/23 14:28 Pulse Oximetry 99 06/14/23 14:28 Oxygen Delivery Me thod Room Air 06/14/23 14:28 MDM - COVID Medical Decision Making Patient presents here with cough congestion URI-like symptoms she has been exposed to COVID COVID test here is pending we will prescribe Paxil but I informed her we will call her she is to call for her COVID results she is stable for discharge at this time she has no signs of pneumonia no hypoxia. Return if worsening Medical Records I reviewed the patient's medical records. Lab Data Radiology Impressions Chest X-Ray 06/14/23 14:15 IMPRESSION: No lobar consolidation is appreciated.No interval acute cardiopulmonary changes are appreciated. SARS-CoV-2 Antigen (Rapid) negative (Negative) 12/02/22 00:43 SARS-CoV-2 RNA (RT-PCR) Not detected (NOT DETECTED) 05/30/21 08:31 Nasal/Oral Coronavirus 2019 PCR Not detected 09/22/20 16:10 All radiology interpretation(s) finalized by discharge Discharge Plan Discharge Patient Disposition: Home Clinical Impression: Upper respiratory infection Condition: Stable Prescriptions: New Paxlovid 300 mg (150 mg x 2)-100 mg tablets,dose pack See Rx Instructions .ROUTE .COMPLEX Qty: 30 0RF Rx Instructions: take TWO 150 mg tablets of nirmatrelvir with ONE 100 mg tablet of ritonavir twice daily for 5 days No Action Flintstones Multivitamin Tablet,Chewable 1 tab PO DAILY Discharge Orders: Discharge ED (Routine); Ordered 06/14/23 Ordered By: James Mcgill Discharge Diet: Advance as tolerated Discharge Activity: Resume usual activity Patient Instructions: Upper Respiratory Infection (ED) Stand Alone Forms: Work/School Release Coding Level of Care Code ED Tool Pusher for Jeri Tejeda
[2023-06-14 14:58] VITALS: O2SAT 95
[2023-06-14 15:02] VITALS: O2SAT 93
[2023-06-14 16:58] LABS: Adenovirus Not Detected (NOT DETECT); Chlamydia Pneumoniae Not Detected (NOT DETECT); Coronavirus 229E,HKU1,NL63,OC4 Detected (NOT DETECT); Human Metapneumovirus Not Detected (NOT DETECT); Human Rhinovirus/Enterovirus Detected (NOT DETECT); Influenza A Not Detected (NOT DETECT); Influenza A H1 Not Detected (NOT DETECT); Influenza A H1-2009 Not Detected (NOT DETECT); Influenza A H3 Not Detected (NOT DETECT); Influenza B Not Detected (NOT DETECT); Mycoplasma Pneumoniae Not Detected (NOT DETECT); Parainfluenza Virus Type 1 Not Detected (NOT DETECT); Parainfluenza Virus Type 2 Not Detected (NOT DETECT); Parainfluenza Virus Type 3 Not Detected (NOT DETECT); Parainfluenza Virus Type 4 Not Detected (NOT DETECT); Respiratory Syncytial Virus A Not Detected (NOT DETECT); Respiratory Syncytial Virus B Not Detected (NOT DETECT); SARS-COV-2 Not Detected (NOT DETECT)
[2023-06-14 17:07] LABS: Human Metapneumovirus Not Detected (NOT DETECT); Human Rhinovirus/Enterovirus Detected (NOT DETECT); Results from GEN
== END 2023-06-14 15:05 | disposition home or self-care (01) ==
PROVIDERS: Emergency Provider Emergency Medicine
DX: J06.9 Acute upper respiratory infection, unspecified (principal); Z20.822 Contact with and (suspected) exposure to COVID-19
CPT/HCPCS: 71045; 87635; 87801; 99284